=== PATIENT | female | born 2000 | race Caucasian/White ===

== ENCOUNTER → 2019-06-27 | Outpatient (CLI) | payer OTHER | LOC: MC.RAD 12:33 | DX: N63.20 Unspecified lump in the left breast, unspecified quadrant (principal) ==

== ENCOUNTER → 2019-06-30 | Outpatient (CLI) | payer OTHER | LOC: MC.RAD 06:53 | DX: N63.20 Unspecified lump in the left breast, unspecified quadrant (principal); Z98.82 Breast implant status ==

== ENCOUNTER 2019-09-20 05:39 | Day surgery (SDC) | payer OTHER ==
[~2019-09-20] VITALS: Ht 170.2 cm; Wt 52.7 kg
[2019-09-20 06:34] VITALS: BP 106/63; PULSE 75; TEMP 97.8
[2019-09-20] MEDS ORDERED: NORCO 325 MG-51 TAB PO (08:14)
[2019-09-20 08:15] VITALS: BP 125/67; PULSE 95
--- NOTE | 2019-09-20 08:15 | NUR ---
Patient returns to room 7 per cart from surgery accompanied by Kayli TORRES and Guerrero Gregorio CRNA and is awake and talking. Dressing clean and dry on the left breast area. IV fluids infusing #20G RH and site is free of redness. Siderails up x2 and call light in reach. Allowed to rest.
[2019-09-20 08:30] VITALS: BP 95/65; PULSE 63
--- NOTE | 2019-09-20 08:30 | NUR ---
Resting and mother at bedside. Denies pain or nausea.
[2019-09-20 08:45] VITALS: BP 91/65; PULSE 61
--- NOTE | 2019-09-20 08:45 | NUR ---
Eating muffin and drinking orange juice. Denies pain or nausea.
--- NOTE | 2019-09-20 09:05 | NUR ---
Assisted up to the bathroom and voids. Tolerates activity and denies pain or nausea.
--- NOTE | 2019-09-20 09:28 | NUR ---
IV discontinued and given dismissal instructions and voices understanding of these. Provided script for [facility] and follow up appointment date and time.
--- NOTE | 2019-09-20 09:33 | NUR ---
Patient dismissed to home driven by spouse and taken to the emergency room entrance by wheelchair and assisted into vehicle by this RN with dismissal instructions in hand.
== END 2019-09-20 09:33 | disposition home or self-care (01) ==
LOC: SDCO 05:39
DX: D24.2 Benign neoplasm of left breast (principal); Z88.0 Allergy status to penicillin
CPT/HCPCS: J2001; J2405; J2704; J3010; J7120

== ENCOUNTER → 2020-11-07 | Outpatient (CLI) | payer OTHER ==
[~2020-11-07] MED LIST: NORCO 325 MG-51 TAB PO
== END ==
LOC: MC.RAD 07:45
DX: N64.9 Disorder of breast, unspecified (principal); Z86.000 Personal history of in-situ neoplasm of breast

== ENCOUNTER → 2021-06-16 | Outpatient (CLI) | payer OTHER | LOC: MC.RAD 08:00 | DX: N63.10 Unspecified lump in the right breast, unspecified quadrant (principal) ==